=== PATIENT | male | born 1970 | race African-American/Black ===

== ENCOUNTER 2017-03-18 21:08 | Emergency (ER) | payer OTHER ==
[~2017-03-18] VITALS: Ht 172.7 cm; Wt 79.5 kg
[2017-03-18 21:11] VITALS: BP 134/85; PULSE 95; RESP 22; TEMP 98; O2SAT 96
[2017-03-18] MEDS ORDERED: LORazepam 2 MG/ML VIAL IV PUSH ONE (21:15)
[2017-03-18 21:27] LABS: AUTOMATED NEUTROPHIL # 2.6 TH/MM3 (1.8-7.7); BASOPHIL # 0.1 TH/MM3 (0-0.2); EOSINOPHIL # 0.1 TH/MM3 (0-0.4); EOSINOPHIL % 2.6 % (0.0-4.0); HEMATOCRIT 37.5 % (39.0-51.0); HEMO FLAGS DIFF FINAL; LYMPH % 37.4 % (9.0-44.0); MEAN CELL VOLUME 97.3 FL (80.0-100.0); MEAN CORPUSCULAR HEMOGLOBIN 32.5 PG (27.0-34.0); MEAN CORPUSCULAR HGB CONC 33.4 % (32.0-36.0); MONO % 8.7 % (0.0-8.0); NEUT % 50.3 % (16.0-70.0); PLATELET COUNT 236 TH/MM3 (150-450); RED BLOOD COUNT 3.86 MIL/MM3 (4.50-5.90); RED CELL DISTRIBUTION WIDTH 13.7 % (11.6-17.2); WHITE BLOOD COUNT 5.3 TH/MM3 (4.0-11.0)
--- NOTE | 2017-03-18 21:27 | PD ---
HPI Chief Complaint: anxiety Time Seen by Provider: 21:10 Travel History International Travel<30 days: No Contact w/Intl Traveler<30days: No Traveled to known affect area: No History of Present Illness HPI Patient is a 47-year-old female with history of hypertension, since the emergency room for evaluation of anxiety reaction. Reports that he has been feeling anxious all day. Reports that he has a lot of family issues going on his house, reports that he began to have sharp and stabbing chest pain which began around 2 PM this afternoon and has persisted all day. Patient reports that chest pain was exacerbated after he was arrested for possession of marijuana in his car. Patient reports that he is anxious as his recently tried to commit suicide, reports that he has not eaten anything all day and his mouth feels dry. Patient reports that he feels dehydrated, reports that "I can' t stop hyperventilating." Patient repeatedly saying that he is "anxious, nervous and scared". Reports that he has 2 kids at home and he has no one to help care for them as his is in a mental health facility at this time. Patient reports that he did use some marijuana today, denies any other drug ingestion. Patient at this time feels extremely anxious and is requesting something for anxiety. Denies history of coronary artery disease, [place], coronary stents. Reports that he does take amlodipine for his hypertension. Patient reports that he is also anxious as he also violated parole today and was arrested. [facility] Past Medical History Hypertension: Yes Social History Alcohol Use: No Tobacco Use: Yes Substance Use: Yes Allergies-Medications (Allergen,Severity, Reaction): Coded Allergies: Penicillins (Verified Allergy, Mild, rash, 03/18/17) Review of Systems General / Constitutional: No: Fever Eyes: No: Visual changes HENT: No: Headaches Cardiovascular: Positive: Chest Pain or Discomfort, No: Palpitations Respiratory: No: Shortness of Breath Gastrointestinal: No: Nausea, Vomiting, Abdominal Pain Genitourinary: No: Dysuria Musculoskeletal: No: Pain Skin: No Rash Neurologic: No: Weakness Psychiatric: Positive: Anxiety, Depression, Substance Abuse, No: Suicidal Ideations, Homicidal Ideation Endocrine: No: Polydipsia Hematologic/Lymphatic: No: Easy Bruising Physical Exam Narrative GENERAL: Mild distress, patient hyperventilating at bedside SKIN: Focused skin assessment warm/dry. HEAD: Atraumatic. Normocephalic. EYES: Pupils equal and round. No scleral icterus. No injection or drainage. ENT: No nasal bleeding or discharge. Mucous membranes pink and moist. NECK: Trachea midline. No JVD. CARDIOVASCULAR: Regular rate and rhythm. No murmur appreciated. RESPIRATORY: No accessory muscle use. Clear to auscultation. Breath sounds equal bilaterally. GASTROINTESTINAL: Abdomen soft, non-tender, nondistended. Hepatic and splenic margins not palpable. MUSCULOSKELETAL: No obvious deformities. No clubbing. No cyanosis. No edema. NEUROLOGICAL: Awake and alert. No obvious cranial nerve deficits. Motor grossly within normal limits. Normal speech. PSYCHIATRIC: Anxious mood and affect Data Data Last Documented VS Vital Signs Date Time Temp Pulse Resp B/P (MAP) Pulse Ox O2 Delivery O2 Flow Rate FiO2 03/18/17 21:11 95 22 134/85 (101) 03/18/17 21:11 98.0 96 Room Air Orders Orders Electrocardiogram (03/18/17 21:11) Ckmb (Isoenzyme) Profile (03/18/17 21:11) Complete Blood Count With Diff (03/18/17 21:11) Comprehensive Metabolic Panel (03/18/17 21:11) Magnesium (Mg) (03/18/17 21:11) Prothrombin Time / Inr (Pt) (03/18/17 21:11) Act Partial Throm Time (Ptt) (03/18/17 21:11) Troponin I (03/18/17 21:11) Chest, Single Ap (03/18/17 21:11) Ecg Monitoring (03/18/17 21:11) Iv Access Insert/Monitor (03/18/17 21:11) Oximetry (03/18/17 21:11) Lorazepam Inj (Ativan Inj) (03/18/17 21:15) CKMB (03/18/17 21:10) CKMB% (03/18/17 21:10) Ed Discharge Order (03/18/17 22:55) Labs Laboratory Tests Test 03/18/17 21:10 White Blood Count 5.3 TH/MM3 Red Blood Count 3.86 MIL/MM3 Hemoglobin 12.6 GM/DL Hematocrit 37.5 % Mean Corpuscular Volume 97.3 FL Mean Corpuscular Hemoglobin 32.5 PG Mean Corpuscular Hemoglobin Concent 33.4 % Red Cell Distribution Width 13.7 % Platelet Count 236 TH/MM3 Mean Platelet Volume 7.4 FL Neutrophils (%) (Auto) 50.3 % Lymphocytes (%) (Auto) 37.4 % Monocytes (%) (Auto) 8.7 % Eosinophils (%) (Auto) 2.6 % Basophils (%) (Auto) 1.0 % Neutrophils # (Auto) 2.6 TH/MM3 Lymphocytes # (Auto) 2.0 TH/MM3 Monocytes # (Auto) 0.5 TH/MM3 Eosinophils # (Auto) 0.1 TH/MM3 Basophils # (Auto) 0.1 TH/MM3 CBC Comment DIFF FINAL Differential Comment Prothrombin Time 11.4 SEC Prothromb Time International Ratio 1.0 RATIO Activated Partial Thromboplast Time 27.5 SEC Blood Urea Nitrogen 11 MG/DL Creatinine 1.40 MG/DL Random Glucose 73 MG/DL Total Protein 7.4 GM/DL Albumin 3.4 GM/DL Calcium Level 8.6 MG/DL Magnesium Level 2.1 MG/DL Alkaline Phosphatase 50 U/L Aspartate Amino Transf (AST/SGOT) 103 U/L Alanine Aminotransferase (ALT/SGPT) 54 U/L Total Bilirubin 0.3 MG/DL Sodium Level 141 MEQ/L Potassium Level 3.7 MEQ/L Chloride Level 107 MEQ/L Carbon Dioxide Level 23.9 MEQ/L Anion Gap 10 MEQ/L Estimat Glomerular Filtration Rate 55 ML/MIN Total Creatine Kinase 3638 U/L Creatine Kinase MB 16.5 NG/ML Creatine Kinase MB % 0.5 % Troponin I LESS THAN 0.02 NG/ML MDM Medical Decision Making Medical Screen Exam Complete: Yes Emergency Medical Condition: Yes Medical Record Reviewed: Yes Interpretation(s) EKG at 2140: NSR at 69bpm, qt/qtc: 386/405, no acute st or t wave changes Vital Signs Date Time Temp Pulse Resp B/P (MAP) Pulse Ox O2 Delivery O2 Flow Rate FiO2 03/18/17 21:11 95 22 134/85 (101) 03/18/17 21:11 98.0 95 22 134/85 (101) 96 Room Air Differential Diagnosis Anxiety reaction, drug reaction, ACS, arrhythmia, pneumothorax, electrolyte abnormality Narrative Course Patient's 47-year-old male who presents to emergency room with complaints of anxiety reaction, depression, symptoms were exacerbated after he was arrested today and broke parole. Patient is hyperventilating in the emergency room, reports that his chest is hurting him and he feels short of breath, reports that his mouth feels dry and he feels panicked. During the course of the patients emergency department visit, the patients history, examination, and differential diagnosis were reviewed with the patient. The patient was placed on a induction machine operator with oximetry and frequent blood pressure monitoring. The patient had an IV access obtained and blood work sent for analysis. The patient was initially provided IV ativan as patient is hyperventilating with commissioned police officer at bedside. Symptoms are most likely a stress reaction versus an anxiety reaction from events that occurred today. The patients laboratory studies were reviewed and remarkable for: Laboratory Tests Test 03/18/17 21:10 White Blood Count 5.3 TH/MM3 (4.0-11.0) Red Blood Count 3.86 MIL/MM3 (4.50-5.90) Hemoglobin 12.6 GM/DL (13.0-17.0) Hematocrit 37.5 % (39.0-51.0) Mean Corpuscular Volume 97.3 FL (80.0-100.0) Mean Corpuscular Hemoglobin 32.5 PG (27.0-34.0) Mean Corpuscular Hemoglobin Concent 33.4 % (32.0-36.0) Red Cell Distribution Width 13.7 % (11.6-17.2) Platelet Count 236 TH/MM3 (150-450) Mean Platelet Volume 7.4 FL (7.0-11.0) Neutrophils (%) (Auto) 50.3 % (16.0-70.0) Lymphocytes (%) (Auto) 37.4 % (9.0-44.0) Monocytes (%) (Auto) 8.7 % (0.0-8.0) Eosinophils (%) (Auto) 2.6 % (0.0-4.0) Basophils (%) (Auto) 1.0 % (0.0-2.0) Neutrophils # (Auto) 2.6 TH/MM3 (1.8-7.7) Lymphocytes # (Auto) 2.0 TH/MM3 (1.0-4.8) Monocytes # (Auto) 0.5 TH/MM3 (0-0.9) Eosinophils # (Auto) 0.1 TH/MM3 (0-0.4) Basophils # (Auto) 0.1 TH/MM3 (0-0.2) CBC Comment DIFF FINAL Differential Comment Prothrombin Time 11.4 SEC (9.8-11.6) Prothromb Time International Ratio 1.0 RATIO Activated Partial Thromboplast Time 27.5 SEC (24.3-30.1) Blood Urea Nitrogen 11 MG/DL (7-18) Creatinine 1.40 MG/DL (0.60-1.30) Random Glucose 73 MG/DL (74-106) Total Protein 7.4 GM/DL (6.4-8.2) Albumin 3.4 GM/DL (3.4-5.0) Calcium Level 8.6 MG/DL (8.5-10.1) Magnesium Level 2.1 MG/DL (1.5-2.5) Alkaline Phosphatase 50 U/L (45-117) Aspartate Amino Transf (AST/SGOT) 103 U/L (15-37) Alanine Aminotransferase (ALT/SGPT) 54 U/L (12-78) Total Bilirubin 0.3 MG/DL (0.2-1.0) Sodium Level 141 MEQ/L (136-145) Potassium Level 3.7 MEQ/L (3.5-5.1) Chloride Level 107 MEQ/L (98-107) Carbon Dioxide Level 23.9 MEQ/L (21.0-32.0) Anion Gap 10 MEQ/L (5-15) Estimat Glomerular Filtration Rate 55 ML/MIN (>89) Total Creatine Kinase 3638 U/L (39-308) Creatine Kinase MB 16.5 NG/ML (0.5-3.6) Creatine Kinase MB % 0.5 % (0.0-4.0) Troponin I LESS THAN 0.02 NG/ML CK total is 3,638. Trop less than 0.02. Patient reports resolution of symptoms after the Ativan was administered. Reports decreased anxiety at this time. I reviewed all labs and all studies with patient in detail, patient feeling much better. Plan for patient to follow up with his primary care doctor. Signs and symptoms of when to return to the ER was reviewed with patient in detail. Radiology studies were reviewed and remarkable for: Last Impressions Chest X-Ray 03/18/171 Signed Impressions: Service Date/Time: Francisca, March 18, 2017 21:40 - CONCLUSION: No acute cardiac or process. There is a possible left sixth rib lesion. This could be further evaluated with a noncontrast CT examination the chest. Kirill Treviño MD Patient was relaxing feeling better after he was given IV Ativan, reviewed all labs and all studies with patient in detail, patient reports that he is anxious about going to senior living. Patient understands importance of hydration and also understands importance of following up with his primary care doctor as well as his financial associate as outpatient. Patient will also stop using drugs as this can add to his anxiety and paranoia. Patient does not have any suicidal or homicidal ideations at this time, patient is safe to be discharged to custody of police officers. Diagnosis Primary Impression: Anxiety reaction Additional Impressions: Rhabdomyolysis Dehydration Patient Instructions: General Instructions Additional Instructions: Please follow up with your primary care doctor in 2-3 days Return to the ER if symptoms worsen or progress Return to the ER as needed Please follow-up with a financial associate in 2-3 days Please stop using drugs Please drink plenty of fluids Disposition: [address] [employer] ENFORCEM[employer] Condition: Stable Kalani Oconnellfer Wil DO Mar 18, 2017 21:27
[2017-03-18 21:36] LABS: CHLORIDE 107 MEQ/L (98-107); POTASSIUM 3.7 MEQ/L (3.5-5.1); SODIUM (NA) 141 MEQ/L (136-145)
[2017-03-18 21:40] LABS: ANION GAP 10 MEQ/L (5-15); BICARBONATE 23.9 MEQ/L (21.0-32.0); BLOOD UREA NITROGEN 11 MG/DL (7-18); MAGNESIUM 2.1 MG/DL (1.5-2.5)
[2017-03-18 21:41] LABS: APTT (PATIENT) 27.5 SEC (24.3-30.1); PROTHROMBIN TIME - PATIENT 11.4 SEC (9.8-11.6)
[2017-03-18 21:43] LABS: ALT (GPT) 54 U/L (12-78); AST (GOT) 103 U/L (15-37); GLOMERULAR FILTRATION RATE 55 ML/MIN (>89)
[2017-03-18 21:44] LABS: TOTAL BILIRUBIN ADULT 0.3 MG/DL (0.2-1.0)
[2017-03-18 21:46] LABS: ALKALINE PHOSPHATASE 50 U/L (45-117)
[2017-03-18 21:57] LABS: CREATINE KINASE 3638 U/L (39-308)
[2017-03-18 22:10] LABS: CKMB 16.5 NG/ML (0.5-3.6)
--- NOTE | 2017-03-18 22:27 | RADRPT ---
EXAM DATE/TIME: 03/18/2017 21:40 [facility] COMPARISON: No previous studies available for comparison. INDICATIONS : Chest pain today. MEDICAL HISTORY : None. SURGICAL HISTORY : None. ENCOUNTER: Initial ACUITY: 1 day PAIN SCORE: 5/10 LOCATION: Bilateral chest FINDINGS: A single view of the chest demonstrates the lungs to be symmetrically aerated without evidence of mas s, infiltrate or effusion. The cardiomediastinal contours are unremarkable. There is a questionable rib lesion at the left sixth rib. This appears mildly expanded CONCLUSION: No acute cardiac or process. There is a possible left sixth rib lesion. This could be further evaluat ed with a noncontrast CT examination the chest. Kirill Treviño MD on March 18, 2017 at 22:24 Board Certified Radiologist. This report was verified electronically.
[2017-03-18 23:43] VITALS: BP 157/81
--- NOTE | 2017-03-19 18:55 | EKG ---
Date Performed: 03/18/2017 Time Performed: 21:40:03 PTAGE: 47 years EKG: Sinus rhythm POSSIBLE RIGHT VENTRICULAR CONDUCTION DELAY EARLY REPOLARIZATION BORDERLINE ECG PREVIOUS TRACING : 12/25/1994 21.43 Compared to prior tracing no significant change DOCTOR: Marco Curran Interpretating Date/Time 03/19/2017 18:54:25
== END 2017-03-18 23:45 ==
LOC: PHED 21:08
DX: F41.1 Generalized anxiety disorder (principal); M62.82 Rhabdomyolysis; E86.0 Dehydration; I10 Essential (primary) hypertension; R07.9 Chest pain, unspecified; Z72.0 Tobacco use
CPT/HCPCS: 71010; 80053; 82550; 82552; 83735; 84484; 85025; 85610; 85730; 93005; 96374; 99285; J2060